=== PATIENT | female | born 1935 ===

== ENCOUNTER 2017-09-28 08:30 | Outpatient (RCR) | payer OTHER | END 2017-09-30 | disposition home or self-care (01) | LOC: PTY 08:30 | DX: G20 Parkinson's disease (principal) ==

== ENCOUNTER 2017-10-05 09:35 | Outpatient (RCR) | payer OTHER | END 2017-10-31 | disposition home or self-care (01) | LOC: PTY 09:35 | DX: G20 Parkinson's disease (principal) ==

== ENCOUNTER 2017-12-02 09:49 | Outpatient (RCR) | payer OTHER | END 2017-12-31 | disposition home or self-care (01) | LOC: PTY 09:49 | DX: G20 Parkinson's disease (principal) ==

== ENCOUNTER 2018-01-01 09:59 | Outpatient (RCR) | payer OTHER | END 2018-01-30 | disposition home or self-care (01) | LOC: PTY 09:59 | DX: G20 Parkinson's disease (principal) ==

== ENCOUNTER 2018-02-02 09:20 | Outpatient (RCR) | payer OTHER | END 2018-03-02 | disposition home or self-care (01) | LOC: PTY 09:20 | DX: G20 Parkinson's disease (principal) ==